=== PATIENT | female | born 1975 | race Hispanic/Latino ===

== ENCOUNTER 2017-07-10 15:03 | Emergency (ER) | payer BC ==
[2017-07-10] MEDS ORDERED: KETOROLAC TROMETHAMINE 30MG/ML ONE (15:45)
[2017-07-10] MEDS ORDERED: DIAZEPAM 5 MG TABLET ONE (15:46)
== END 2017-07-10 16:45 | disposition home or self-care (01) ==
LOC: EDH 15:03
DX: M54.2 Cervicalgia (principal); Z87.891 Personal history of nicotine dependence
CPT/HCPCS: 96372; 99283; J1885

== ENCOUNTER 2018-03-23 08:12 | Emergency (ER) | payer BC | END 2018-03-23 09:31 | disposition home or self-care (01) | LOC: EDH 08:12 | DX: M23.52 Chronic instability of knee, left knee (principal); Z72.0 Tobacco use | CPT/HCPCS: 73562 ==